=== PATIENT | male | born 1950 | race African-American/Black ===

== ENCOUNTER 2017-12-31 20:17 | Emergency (ER) | payer OTHER ==
[~2017-12-31] VITALS: Ht 195.6 cm; Wt 95.0 kg
[~2017-12-31 20:17] MED LIST: AMLO10TA80; CLON0.1T14; HCTZ 25 MG; LISI-604; METO25TA3; MINO2.5T2
[2017-12-31] MEDS ORDERED: TETANUS, DIPHTHERIA, PERTUSSIS VAC/PF 0.5ML (>7YR OLD) IM ONE (23:15)
[2017-12-31] MEDS ORDERED: ACETAMINOPHEN 500MG TABLET PO ONE (23:15)
[2017-12-31] MEDS ORDERED: IBUPROFEN 400MG TABLET PO ONE (23:15)
[2017-12-31] MEDS ORDERED: LIDOCAINE/EPINEPHR/TETRACAINE 3ML TP ONE (23:15)
[2017-12-31] MEDS ORDERED: LIDOCAINE HCL 1%/EPI 1:200,000 30 ML VIAL MC ONE (23:15)
[2017-12-31 23:21] VITALS: BP 152/86
== END 2018-01-01 00:50 | disposition home or self-care (01) ==
LOC: ER 20:17
DX: S01.01XA Laceration without foreign body of scalp, initial encounter (principal); I11.0 Hypertensive heart disease with heart failure; I50.9 Heart failure, unspecified; F03.90 Unspecified dementia, unspecified severity, without behavioral disturbance, psychotic disturbance, mood disturbance, and anxiety; E78.00 Pure hypercholesterolemia, unspecified; W01.0XXA Fall on same level from slipping, tripping and stumbling without subsequent striking against object, initial encounter; Y93.89 Activity, other specified; Y92.89 Other specified places as the place of occurrence of the external cause; Y99.8 Other external cause status
CPT/HCPCS: 12002; 70450; 90471; 90715; 99284

== ENCOUNTER 2019-11-09 22:47 | Emergency (ER) | payer OTHER ==
[~2019-11-09] VITALS: Ht 193 cm; Wt 90.0 kg
[2019-11-09] MEDS ORDERED: ONDANSETRON HCL 4MG/2ML INJ IV STA (23:07)
[2019-11-09] MEDS ORDERED: SODIUM CHLORIDE 0.9% 1,000 ML IV ONE (23:07)
[2019-11-09] MEDS ORDERED: FAMOTIDINE 20MG/2ML VIAL IV ONE (23:15)
[2019-11-09 23:26] LABS: BASOPHILS % 0.4 % (0.0-2.0); EOSINOPHILS % 0.3 % (0.0-5.0); HEMATOCRIT. 37.2 % (42.0-52.0); HEMOGLOBIN. 12.5 g/dL (14.0-18.0); LYMPHOCYTES % 12.4 % (20.0-50.0); MEAN CORPUSCULAR HEMOGLOBIN 26.7 pg (28.0-32.0); MEAN CORPUSCULAR VOLUME 79.6 fL (80.0-94.0); MEAN PLATELET VOLUME 8.5 fl (7.4-10.4); MONOCYTES % 3.3 % (2.0-8.0); NEUTROPHILS % 83.6 % (40.0-76.0); PLATELET 348 x1000/uL (130-400); RED BLOOD CELL COUNT 4.68 mill/uL (4.7-6.1); RED CELL DISTRIBUTION WIDTH 15.9 % (11.6-14.6)
[2019-11-09 23:31] LABS: CHLORIDE 111 mEq/L (98-107)
[2019-11-10] MEDS ORDERED: ONDANSETRON HCL 4MG/2ML INJ IV STA (00:13)
[2019-11-10] MEDS ORDERED: MORPHINE SULFATE 4 MG/ML CPJ (NOT FOR IM USE) IV STA (00:13)
[2019-11-10 00:28] LABS: PARTIAL THROMBOPLASTIN TIME 26.7 sec (23.4-31.0); PROTHROMBIN TIME 10.7 sec (9.6-11.0)
[2019-11-10] MEDS ORDERED: HYDRALAZINE 20MG/ML VIAL IV ONE (01:45)
[2019-11-10 01:47] LABS: CLARITY URINE CLEAR (CLEAR); COLOR URINE YELLOW (YELLOW); KETONES URINE NEGATIVE (NEGATIVE); LEUKOCYTE ESTERASE URINE NEGATIVE (NEGATIVE); NITRITE URINE NEGATIVE (NEGATIVE); OCCULT BLOOD URINE 2+ (NEGATIVE); PROTEIN URINE TRACE (NEGATIVE); SPECIFIC GRAVITY URINE 1.011 (1.005-1.030); UROBILINOGEN URINE 0.2 E.U./dL (0.2-1.0)
[2019-11-10 02:06] VITALS: BP 183/89
== END 2019-11-10 02:30 | disposition short-term general hospital (02) ==
LOC: ER 22:50 → CANBEDREQ 11-10 21:14
DX: R10.13 Epigastric pain (principal); R94.31 Abnormal electrocardiogram [ECG] [EKG]; N17.9 Acute kidney failure, unspecified; I10 Essential (primary) hypertension; F03.90 Unspecified dementia, unspecified severity, without behavioral disturbance, psychotic disturbance, mood disturbance, and anxiety; I69.954 Hemiplegia and hemiparesis following unspecified cerebrovascular disease affecting left non-dominant side
CPT/HCPCS: 36415; 71045; 74176; 80053; 81003; 83690; 83880; 84484; 85025; 85610; 85730; 93005; 96361; 96374; 96375; 96376; 99285; J0360; J2270; J2405; J3490; J7030